=== PATIENT | female | born 1960 | race Caucasian/White ===

== ENCOUNTER → 2023-10-31 | Outpatient (CLI) | payer BC ==
--- NOTE | 2023-10-31 09:50 | MR ---
EXAMINATION TYPE: MR brain and iac wo/w con DATE OF EXAM: 10/31/2023 COMPARISON: No direct comparisons HISTORY: Tinnitus, sensorineural neural hearing loss, bilateral. TECHNIQUE: Multiplanar, multisequence images of the brain and IAC is performed without and with IV contrast, uti lizing 9 mL intravenous Gadavist . FINDINGS: The hill-white junctions, ventricular system, basal cisterns appear unremarkable. Diffusi on-weighted imaging shows no evidence of restricted diffusion. No FLAIR signal abnormalities identifi ed. After administration of gadolinium, no abnormal enhancement is seen. The internal auditory canal sequences demonstrate no significant irregularity. The 7th cranial nerve s, 8 cranial nerves, and cerebellar pontine angles appear unremarkable. After the administration fam olinium, no abnormal enhancement is seen within the internal auditory canals. Mild mucosal thickening in the left anterior ethmoid sinus with minimal fluid signal identified within the bilateral inferio r mastoid air cells. IMPRESSION: 1. No evidence of intracranial mass nor acute/subacute CVA. 2. No evidence of internal auditory canal abnormality.
== END | disposition home or self-care (01) ==
LOC: RADMRIMAIN 06:05
PROVIDERS: ATTEND Otolaryngology
DX: H90.3 Sensorineural hearing loss, bilateral (principal); H93.13 Tinnitus, bilateral
CPT/HCPCS: 70553; A9585

== ENCOUNTER → 2024-02-06 | Outpatient (CLI) | payer BC ==
--- NOTE | 2024-02-06 10:49 | CT ---
EXAMINATION TYPE: CT angio head neck DATE OF EXAM: 02/06/2024 COMPARISON: None CLINICAL INDICATION: Female, 63 years old with history of H838X1, H83.8X2, H93.19 TINNITUS RT SIDE; P HH, RIGHT EAR TENNITIS X8 MONTHS TECHNIQUE: CTA scan of the head and neck is performed with IV Contrast, patient injected with 65 mL of Isovue 370, axial images are obtained, coronal and sagittal reformatted images are reviewed. 3D re constructed images are created on an independent workstation and reviewed. CT DLP: 444.3 mGycm Automated exposure control for dose reduction was used. NASCET criteria was used in interpretation of this exam? FINDINGS: The brachiocephalic origins are widely patent and no significant stenosis. There is no significant stenosis of the common or internal carotid arteries within the neck. There is no stenosis of the vertebral arteries. Intracranially, there is no stenosis, segmental occlusion, sizable aneurysm sac or vascular malformat ion. IMPRESSION:. No significant abnormality seen. NASCET criteria was used in interpretation of this exam? [facility], Workstation: CANDIS 02/06/2024 10:46 AM
--- NOTE | 2024-02-06 11:17 | CT ---
EXAMINATION TYPE: CT iac wo con CT DLP: 150 mGycm, Automated exposure control for dose reduction was used. DATE OF EXAM: 02/06/2024 9:58 AM INDICATION: Patient age: Female; 63 years old; Reason for study: H838X1, H83.8X2, H93.19 TINNITUS RT SIDE; [facility]. COMPARISON: None. TECHNIQUE: Multiple thin axial images were obtained through the temporal bones and internal auditory canals. Additional coronal reformatted images were obtained. No IV contrast was utilized. STENVER a nd POSCHL views were created on a separate work station. CT Contrast: mL of , none. FINDINGS: Right Temporal Bone: External Ear: The external auditory canal is unremarkable, The tympanic membrane is present and unrem arkable. Middle Ear: The ossicles demonstrate a normal appearance. Prussak's space is clear and the scutum i s intact. There is no evidence of osseous erosion and the tegmen tympani is intact. Inner Ear: Cochlea, vestibule and semi circular canals are unremarkable. No evidence of carotid mary l dehiscence. Two and a half turns of the cochlea are identified. The vestibular aqueduct is not enl arged. Mastoid Air Cells: The mastoid air cells are clear. The tegmen mastoideum is intact. The aditus ad an trum is clear. Internal Auditory Canal: The internal auditory canal is unremarkable. Left Temporal Bone: External Ear: The external auditory canal is unremarkable, The tympanic membrane is present and unrem arkable. Middle Ear: The ossicles demonstrate a normal appearance. Prussak's space is clear and the scutum i s intact. There is no evidence of osseous erosion and the tegmen tympani is intact. Inner Ear: Cochlea, vestibule and semi circular canals are unremarkable. No evidence of carotid mary l dehiscence. Two and a half turns of the cochlea are identified. The vestibular aqueduct is not enl arged. Mastoid Air Cells: The mastoid air cells are clear. The tegmen mastoideum is intact. The aditus ad an trum is clear. Internal Auditory Canal: The internal auditory canal is unremarkable. Other: Mild paranasal sinus mucosal thickening. Enlarged sphenoid sinuses which extend laterally with some mild mucosal thickening. IMPRESSION: No significant abnormality to explain the patient's tinnitus. [facility], , 02/06/2024 11:15 AM
--- NOTE | 2024-02-06 11:31 | CT ---
EXAMINATION TYPE: CT Venogram Head DATE OF EXAM: 02/06/2024 9:59 AM COMPARISON: 02/06/2024, CLINICAL INDICATION: Female, 63 years old with history of TINITUS, RIGHT EAR TENNITIS X8 MONTHS, TECHNIQUE: Axial CT imaging of the head with IV contrast with delayed imaging for the veins. Contrast used:65 (FROM CTA STUDY) mL of Isovue 370 with IV Contrast, (none if empty) Oral contrast used: (none if empty) CT DLP: 1164.8 mGycm, Automated exposure control for dose reduction was used. FINDINGS: There is no evidence of venous occlusion or collateral circulation. Hypoplastic left and dominant rig ht transverse sinus. There is no evidence of sinus thrombosis. IMPRESSION: No evidence of venous sinus thrombosis. [facility], , 02/06/2024 11:29 AM
== END | disposition home or self-care (01) ==
LOC: RADCTMAIN 08:44
PROVIDERS: ATTEND Otolaryngology Otology & Neurotology
DX: H83.8X1 Other specified diseases of right inner ear (principal); H83.8X2 Other specified diseases of left inner ear; H71.03 Cholesteatoma of attic, bilateral; H71.13 Cholesteatoma of tympanum, bilateral; H71.2 Cholesteatoma of mastoid; H93.11 Tinnitus, right ear
CPT/HCPCS: 70496; 70480; 70498; Q9967